=== PATIENT | female | born 1965 | race Two or more races ===

== ENCOUNTER 2018-07-19 19:27 | Emergency (ER) | payer OTHER ==
[~2018-07-19] VITALS: Ht 160 cm; Wt 54.4 kg
[~2018-07-19 19:27] MED LIST: DOLOGESIC CAPSU1 CAP PO; KETO10TA2 PO; ORPH100T PO; TRAMADOL HCL-AP1 TAB PO
[2018-07-19] MEDS ORDERED: METFORMIN HCL500 MG (19:54)
[2018-07-19] MEDS ORDERED: FORTAMET1000 MG (19:54)
[2018-07-19] MEDS ORDERED: SIMVASTATIN10 MG (19:54)
[2018-07-20] MEDS ORDERED: KRISTALOSE20 GM PO (03:58)
== END 2018-07-20 03:56 | disposition home or self-care (01) ==
LOC: ER 19:27
DX: K59.09 Other constipation (principal)

== ENCOUNTER 2022-11-03 08:48 | Emergency (ER) | payer OTHER ==
[~2022-11-03] VITALS: Ht 160 cm; Wt 56.7 kg
[~2022-11-03 08:48] MED LIST changes: +FORTAMET1000 MG; +KRISTALOSE20 GM PO; +METFORMIN HCL500 MG; +SIMVASTATIN10 MG
== END 2022-11-03 15:12 | disposition home or self-care (01) ==
LOC: ER 08:48
DX: B34.9 Viral infection, unspecified (principal); Z20.822 Contact with and (suspected) exposure to COVID-19

== ENCOUNTER 2024-10-06 11:24 | Emergency (ER) | payer OTHER ==
[~2024-10-06] VITALS: Ht 160 cm; Wt 51.7 kg
[2024-10-06] MEDS ORDERED: TAMSULOSIN HCL 0.4 MG CAP PO ONE (14:24)
[2024-10-06] MEDS ORDERED: KETOROLAC TROMETHAMINE 60 MG VIAL IM ONE (14:24)
[2024-10-06] MEDS ORDERED: CEFTRIAXONE SODIUM 1,000 MG VIAL ONE (14:25)
[2024-10-06 14:54] LABS: PH,URINE 5.5 (5.0-8.0); URINE APPEARANCE Clear; URINE BILIRRUBIN Negative (NEGATIVE); URINE BLOOD Negative; URINE COLOR Yellow; URINE KETONE Negative (NEGATIVE); URINE LEUKOCYTE Trace; URINE NITRATE Negative; URINE PROTEIN Negative (NEGATIVE); URINE UROBILINOGEN 0.2 E.U./dl
[2024-10-06 14:54] LABS: HEMATOCRIT 41.5 % (36.0-45.00); HEMOGLOBIN 13.7 g/dL (12.0-15.00); MEAN CELL VOLUME 88.2 fL (80.00-100.00); MEAN CORPUSCULAR HGB CONC 32.9 g/dl (32.0-36.0); PLATELET COUNT 361 K/uL (150-450); RED BLOOD COUNT 4.71 M/uL (4.00-6.00); RED CELL DISTRIBUTION WIDTH 13.8 % (11.5-14.5)
[2024-10-06 14:58] LABS: URINE CAST 0.29 uL (0.0-1.40); URINE EPITHELIAL CELLS 7.9 uL (0.0-38.8); URINE GLUCOSE >=1000 MG/DL (NEGATIVE); URINE RBC 1.3 uL (0.0-20.8); URINE WBC 50.1 uL (0.0-23.2)
== END 2024-10-06 16:07 | disposition home or self-care (01) ==
LOC: ER 11:26
PROVIDERS: General Practice
DX: N20.0 Calculus of kidney (principal)